=== PATIENT | female | born 1960 | race Caucasian/White ===

== ENCOUNTER → 2023-06-23 10:32 | Outpatient (REF) | payer BC, SELFPAY | LOC: HWWDC 10:32 | PROVIDERS: ATTENDING PHYSICIAN Obstetrics & Gynecology Gynecology; FAMILY PHYSICIAN Internal Medicine | DX: Z12.31 Encounter for screening mammogram for malignant neoplasm of breast (principal) | CPT/HCPCS: 77063; 77067 ==

== ENCOUNTER → 2024-06-24 12:25 | Outpatient (REF) | payer BC, SELFPAY | LOC: HWWDC 12:25 | PROVIDERS: ATTENDING PHYSICIAN Obstetrics & Gynecology Gynecology; FAMILY PHYSICIAN Internal Medicine | DX: Z12.31 Encounter for screening mammogram for malignant neoplasm of breast (principal) | CPT/HCPCS: 77063; 77067 ==

== ENCOUNTER → 2024-07-29 07:04 | Outpatient (REF) | payer BC, SELFPAY ==
--- NOTE | 2024-07-29 09:40 | OID.BR.INTR ---
[facility] Navigator - Initial
- -
Date of Contact: 07/29/24
Met with patient. Patient given written information on navigator service available at [facility]. Will follow up as needed per protocol.
== END ==
LOC: WDC 07:04
PROVIDERS: ATTENDING PHYSICIAN Obstetrics & Gynecology Gynecology; FAMILY PHYSICIAN Internal Medicine
DX: R92.1 Mammographic calcification found on diagnostic imaging of breast (principal)
CPT/HCPCS: 88305; 19081; 76098; A4648

== ENCOUNTER → 2024-08-22 07:41 | Outpatient (REF) | payer BC, SELFPAY | LOC: WDC 07:41 | PROVIDERS: ATTENDING PHYSICIAN Surgery | DX: N60.99 Unspecified benign mammary dysplasia of unspecified breast (principal) | CPT/HCPCS: 19281; A4648 ==

== ENCOUNTER 2024-08-23 06:02 | Day surgery (SDC) | payer BC, SELFPAY ==
[2024-08-16 11:18] LABS: Hemoglobin 11.5 g/dL (12.0-16.0); Mean Corp Hgb Conc. 32.9 g/dL (33.0-37.0); Mean Corpuscular Hgb 32.3 pg (27.0-31.0); Mean Corpuscular Volume 98.3 fL (81.0-99.0); Mean Platelet Volume 9.6 fL (7.4-10.4); Platelet Count 258 10^3/uL (130-400); Red Blood Cell Count 3.56 10^6/uL (4.20-5.40); White Blood Cell Count 3.2 10^3/uL (4.8-10.8)
[2024-08-16 13:36] LABS: ALT (SGPT) 31 U/L (0-35); AST (SGOT) 31 U/L (14-36); Alkaline Phosphatase 48 U/L (38-126); Blood Urea Nitrogen 16 mg/dl (7-17); Calcium 9.6 mg/dl (8.4-10.2); Carbon Dioxide 30 mmol/L (22-30); Chloride 104 mmol/L (98-107); Glucose 82 mg/dl (70-99); Potassium 4.6 mmol/L (3.5-5.1); Sodium 140 mmol/L (135-145); Total Bilirubin 0.9 mg/dl (0.2-1.3); Total Protein 6.7 g/dl (6.3-8.2); Vitamin D, 25-OH*** 64.2 ng/mL (30-80); eGFR > 60.00
[2024-08-16 13:41] VITALS: BMI 15.5
[2024-08-16 14:12] LABS: Prealbumin (Transthyretin) 23.1 mg/dl (17.6-36.0)
--- NOTE | 2024-08-16 15:21 | PTCARENOTE ---
Patients 7/ ECG abnormal- reviwed y Dr. Ko- no additional interventions required
[2024-08-23 06:55] VITALS: BMI 15.5
[2024-08-23 06:56] VITALS: BP 114/76
[2024-08-23] MEDS: VANCOCIN 200 IV (07:06)
[2024-08-23] MEDS: NORMOSOL-R/PLASMALYTE-A 1000 IV (07:06)
[2024-08-23] MEDS: TYLENOL 1000 MG PO (07:06)
--- NOTE | 2024-08-23 07:22 | W.SUR.PREOP ---
Pre-Operative Surgical Note
-
I have examined this patient prior to the performance of the scheduled procedure.
The patient's condition is unchanged from the time of the current History and
Physical and the patient is able to undergo the scheduled procedure.
[2024-08-23 08:45] VITALS: BP 98/65
[2024-08-23 09:00] VITALS: BP 101/63
[2024-08-23 09:15] VITALS: BP 104/74
[2024-08-23 09:25] VITALS: BP 102/76
== END 2024-08-23 09:35 | disposition home or self-care (01) ==
LOC: SDS 06:02
PROVIDERS: ATTENDING PHYSICIAN Surgery; FAMILY PHYSICIAN Internal Medicine
DX: N60.91 Unspecified benign mammary dysplasia of right breast (principal)
CPT/HCPCS: 19301; 88307; 36415; 76098; 80053; 82306; 84134; 85027; 88341; 88342; 93005